=== PATIENT | male | born 1975 | race African-American/Black ===

== ENCOUNTER 2021-02-05 13:18 | Emergency (ER) | payer OTHER, SELFPAY ==
[2021-02-05 16:14] LABS: Absolute Lymphocytes (CBC) 1.7 K/uL (0.7-4.9); Hematocrit 43.6 % (39.6-49.0); Lymphocytes % 26.1 % (15.3-44.8); MPV 8.1 fL (7.6-11.3); RBC Red Blood Cell Count 4.93 M/uL (4.33-5.43)
[2021-02-05 16:17] LABS: Albumin 3.8 g/dL (3.4-5.0); Bilirubin Total 0.4 mg/dL (0.2-1.0); Potassium 4.7 mmol/L (3.5-5.1); Protein, Total 7.8 g/dL (6.4-8.2)
--- NOTE | 2021-02-05 17:10 | EDPHYS ---
Physician Documentation [facility] Name: Kai Vega Age: 45 yrs Sex: Male : 1975 Arrival Date: 02/05/2021 Time: 13:20 Bed 23 Private MD: ED Physician Zeke Pereira HPI: 02/05 15:18 This 45 yrs old Black Male presents to ER via Ambulatory with complaints of Fever, Sore jmm Throat. 15:18 The patient reports fever, that was measured at 103 degrees Fahrenheit. Onset: The jmm symptoms/episode began/occurred gradually. This is a 45 year old male with no chronic medical conditions that presents to the ED with complaints of sore throat, cough. Evaluated at [facility] with negative labs. Prescribed oral abx. States patient still has a fever with ongoing sore throat and has noted scrotal lesions. . Historical: - Allergies: 13:40 No Known Allergies; ll1 - PMHx: 13:40 None; ll1 - PSHx: 13:40 abscess to scrotum I \T\ D; ll1 - Immunization history:: Flu vaccine is not up to date. - Social history:: Smoking status: Patient reports the use of cigarette tobacco products, smokes one-half pack cigarettes per day. ROS: 15:18 Constitutional: Positive for fever. jmm 15:18 ENT: Positive for sore throat. 15:18 Skin: Positive for erythema. 15:18 All other systems are negative. Exam: 15:18 Constitutional: This is a well developed, well nourished patient who is awake, alert, jmm and in no acute distress. Head/Face: atraumatic. Eyes: EOMI, no conjunctival erythema appreciated Neck: Trachea midline, Supple Chest/axilla: Normal chest wall appearance and motion. Cardiovascular: Regular rate and rhythm. No edema appreciated 15:18 Abdomen/GI: Non distended, soft Back: Normal ROM Skin: General appearance color normal 15:18 MS/ Extremity: Moves all extremities, no obvious deformities appreciated, no edema noted to the lower extremities Neuro: Awake and alert, normal gait Psych: Behavior is normal, Mood is normal, Patient is cooperative and pleasant 15:18 ENT: Posterior pharynx: Uvula: erythema, erythema, that is moderate, exudate, that is moderate, peritonsillar mass, is not appreciated. 15:18 : scrotal lesions noted. Vital Signs: 13:41 BP 117 / 87; Pulse 85; Resp 17; Temp 98.2; Pulse Ox 96% on R/A; Weight 63.96 kg; Height ll1 5 ft. 6 in. (167.64 cm); Pain 6/10; 15:21 BP 133 / 96; Pulse 78; Resp 16; Pulse Ox 100% on R/A; vg1 16:00 BP 126 / 88; Pulse 69; Resp 20; Pulse Ox 100% on R/A; vg1 17:00 BP 126 / 98; Pulse 80; Resp 18; Pulse Ox 100% on R/A; vg1 13:41 Body Mass Index 22.76 (63.96 kg, 167.64 cm) ll1 MDM: 15:06 Patient medically screened. [facility] 17:03 Data reviewed: vital signs, nurses notes. Counseling: I had a detailed discussion with yasir the patient and/or guardian regarding: the historical points, exam findings, and any diagnostic results supporting the discharge/admit diagnosis, lab results, radiology results, the need for outpatient follow up, to return to the emergency department if symptoms worsen or persist or if there are any questions or concerns that arise at home. ED course: Patient is alert and non toxic in appearance in the ED. No signs of resp distress. Patient is advised to follow up with pcp and otherwise given strict return precautions. Patient understood and agrees with the plan of care. . 02/05 15:15 Order name: CBC with Diff [facility] 02/05 15:15 Order name: CMP; Complete Time: 16:22 [facility] 02/05 15:15 Order name: Procalcitonin; Complete Time: 16:38 [facility] 02/05 15:15 Order name: Lactate; Complete Time: 16:22 [facility] 02/05 15:15 Order name: Strep; Complete Time: 16:22 [facility] 02/05 15:15 Order name: [place] Screen Profile; Complete Time: 16:34 [facility] 02/05 15:15 Order name: Saline Lock; Complete Time: 15:55 [facility] 02/05 15:16 Order name: CBC with Automated Diff; Complete Time: 16:16 [facility] 02/05 16:18 Order name: Throat Culture [facility] 02/05 16:42 Order name: SARS-COV-2 RT PCR; Complete Time: 16:43 EDSC Administered Medications: 17:06 Drug: Decadron - Dexamethasone 10 mg Route: IVP; Site: right antecubital; vg1 17:27 Follow up: Response: No adverse reaction vg1 Disposition: 17:44 Co-signature as Attending Physician, Zeke Pereira MD I agree with the assessment and tw4 plan of care. Disposition: 02/05/21 17:10 Discharged to Home. Impression: Scrotal Folliculitis, Acute Pharyngitis. - Condition is Stable. - Discharge Instructions: Pharyngitis, Folliculitis. - Prescriptions for Doxycycline Hyclate 100 mg Oral Tablet - take 1 tablet by ORAL route every 12 hours; 20 tablet. - Medication Reconciliation Form, Thank You Letter, Antibiotic Education, Prescription Opioid Use form. - Follow up: Eugenio Long MD; When: 2 - 3 days; Reason: Recheck today's complaints, Continuance of care, Re-evaluation by your physician. Signatures: Dispatcher [employer] [facility] Hoang Vazquez PA PA jmm Wadley, Terrence, MD MD tw4 Helen Finnegan, RN RN vg1 Rizwana Lua RN RN ll1 Corrections: (The following items were deleted from the chart) 15:51 15:16 CORONAVIRUS+MR.LAB.BRZ ordered. [facility] EDSC 17:27 17:10 02/05/2021 17:10 Discharged to Home. Impression: Scrotal Folliculitis; Acute vg1 Pharyngitis. Condition is Stable. Forms are Medication Reconciliation Form, Thank You Letter, Antibiotic Education, Prescription Opioid Use. Follow up: Eugenio Long; When: 2 - 3 days; Reason: Recheck today's complaints, Continuance of care, Re-evaluation by your physician. yasir
--- NOTE | 2021-02-05 17:10 | ER ---
[facility]'s Notes [facility] Name: Kai Vega Age: 45 yrs Sex: Male : 1975 Arrival Date: 02/05/2021 Time: 13:20 Bed 23 Private MD: Diagnosis: Scrotal Folliculitis;Acute Pharyngitis Presentation: 02/05 13:41 Chief complaint: Patient states: 1. Fever, chills, sore throat, cough for 2 weeks. Went ll1 to [place] 4 days ago, flu/strep and covid negative at that time. on antibiotic (unknown name) for 4 days. States his fever was 101.5 this morning, took tylenol [employer]. 2. Noticed small abrasions, redness, pain to perineal area for 4 days. No drainage at this time. Coronavirus screen: Client denies travel out of the [place] in the last 14 days. chills, congestion, cough unrelated to allergies, diarrhea, fever, headache, nausea, runny nose, shaking with chills, shortness of breath, sore throat, Client presents with at least one sign or symptom that may indicate coronavirus-19. Standard/surgical mask placed on the client. Ebola Screen: Patient denies travel to an Ebola-affected area in the 21 days before illness onset. Initial Sepsis Screen: Does the patient meet any 2 criteria? No. Patient's initial sepsis screen is negative. Does the patient have a suspected source of infection? Yes: Productive cough/pneumonia. Risk Assessment: Do you want to hurt yourself or someone else? Patient reports no desire to harm self or others. Onset of symptoms was January 24, 2021. 13:41 Method Of Arrival: Ambulatory ll1 13:41 Acuity: PAYAL 3 ll1 Historical: - Allergies: 13:40 No Known Allergies; ll1 - PMHx: 13:40 None; ll1 - PSHx: 13:40 abscess to scrotum I \T\ D; ll1 - Immunization history:: Flu vaccine is not up to date. - Social history:: Smoking status: Patient reports the use of cigarette tobacco products, smokes one-half pack cigarettes per day. Screenin:22 Abuse screen: Denies threats or abuse. Nutritional screening: No deficits noted. vg1 Tuberculosis screening: No symptoms or risk factors identified. Fall Risk No fall in past 12 months (0 pts). No secondary diagnosis (0 pts). IV access (20 points). Ambulatory Aid- None/Bed Rest/Nurse Assist (0 pts). Gait- Normal/Bed Rest/Wheelchair (0 pts) Mental Status- Oriented to own ability (0 pts). Total [place] Fall Scale indicates No Risk (0-24 pts). Assessment: 15:20 General: Appears in no apparent distress. comfortable, Behavior is calm, cooperative. vg1 Pain: Complains of pain in throat Pain currently is 6 out of 10 on a pain scale. Neuro: Level of Consciousness is awake, alert, obeys commands, Oriented to person, place, time, situation. Cardiovascular: Patient's skin is warm and dry. Respiratory: Reports cough that is productive, Airway is patent Respiratory effort is even, unlabored, Breath sounds are clear bilaterally. Denies shortness of breath. GI: No signs and/or symptoms were reported involving the gastrointestinal system. : No signs and/or symptoms were reported regarding the genitourinary system. EENT: Throat is reddened. Derm: Skin is intact, is healthy with good turgor. Musculoskeletal: Circulation, motion, and sensation intact. 17:07 Reassessment: Patient appears in no apparent distress at this time. No changes from vg1 previously documented assessment. Patient and/or family updated on plan of care and expected duration. Pain level reassessed. Patient is alert, oriented x 3, equal unlabored respirations, skin warm/dry/pink. Vital Signs: 13:41 BP 117 / 87; Pulse 85; Resp 17; Temp 98.2; Pulse Ox 96% on R/A; Weight 63.96 kg; Height ll1 5 ft. 6 in. (167.64 cm); Pain 6/10; 15:21 BP 133 / 96; Pulse 78; Resp 16; Pulse Ox 100% on R/A; vg1 16:00 BP 126 / 88; Pulse 69; Resp 20; Pulse Ox 100% on R/A; vg1 17:00 BP 126 / 98; Pulse 80; Resp 18; Pulse Ox 100% on R/A; vg1 13:41 Body Mass Index 22.76 (63.96 kg, 167.64 cm) ll1 ED Course: 13:20 Patient arrived in ED. ds1 13:40 Arm band placed on. ll1 13:44 Triage completed. 1 14:59 [facility] 14:59 Zeke Pereira MD is Attending Physician. [facility] 15:20 Helen Finnegan, RN is Primary Nurse. vg1 15:22 Patient has correct armband on for positive identification. Bed in low position. Call 1 light in reach. Side rails up X 1. 15:55 Initial lab(s) drawn, by me, sent to lab. COVID swab sent to lab. Strep swab sent to 1 lab. Inserted saline lock: 20 gauge in right antecubital area, using aseptic technique. Blood collected. 17:10 Eugenio Long MD is Referral Physician. [facility] 17:27 No provider procedures requiring assistance completed. IV discontinued, intact, vg1 bleeding controlled, No redness/swelling at site. Pressure dressing applied. Administered Medications: 17:06 Drug: Decadron - Dexamethasone 10 mg Route: IVP; Site: right antecubital; 1 17:27 Follow up: Response: No adverse reaction vg1 Outcome: 17:10 Discharge ordered by . [facility] 17:27 Discharged to home ambulatory. vg1 17:27 Condition: stable 17:27 Discharge instructions given to patient, Instructed on discharge instructions, the need for admit, medication usage, Demonstrated understanding of instructions, follow-up care, medications, Prescriptions given X 1. 17:27 Patient left the ED. 1 Signatures: Hoang Vazquez PA PA [facility] Trang Li ds1 Helen Finnegan RN RN 1 Rizwana Lua RN RN [facility] Corrections: (The following items were deleted from the chart) 13:45 13:41 Chief complaint: Patient states: Fever, chills, sore throat, cough for 2 weeks. ll1 Went to [place] 4 days ago, flu/strep and covid negative at that time. on antibiotic (unknown name) for 4 days. States his fever was 101.5 this morning, took tylenol [employer]. 1
[2021-02-05] MEDS ORDERED: dexAMETHasone 10 MG/ML VIAL ONE (17:17)
[2021-02-05 17:39] VITALS: TEMP 98.2
[2021-02-05 17:40] VITALS: O2SAT 100
[2021-02-05 17:43] VITALS: BP 126/98
== END 2021-02-05 17:27 | disposition home or self-care (01) ==
LOC: ER 13:18
DX: L73.8 Other specified follicular disorders (principal); J02.9 Acute pharyngitis, unspecified; F17.210 Nicotine dependence, cigarettes, uncomplicated; Z20.822 Contact with and (suspected) exposure to COVID-19
CPT/HCPCS: 36415; 80053; 83605; 84145; 85025; 86308; 87070; 87081; 96374; 99284; J1100; U0003

== ENCOUNTER 2024-11-14 12:39 | Emergency (ER) | payer OTHER, SELFPAY ==
[2024-11-14] MEDS ORDERED: LABETALOL 20 MG/4ML SYRINGE IV ONE (13:33)
[2024-11-14 13:42] LABS: Absolute Basophils 0.1 K/uL (0-0.5); Absolute Eosinophils 0.1 K/uL (0-0.5); Absolute Lymphocytes (CBC) 2.1 K/uL (0.7-4.9); Absolute Monocytes 0.6 K/uL (0.1-1.3); Absolute Neutrophil 3.3 K/uL (1.8-8.0); Hematocrit 48.6 % (39.6-49.0); Hemoglobin 15.7 g/dL (13.6-17.9); Lymphocytes % 33.8 % (15.3-44.8); MCH 29.3 pg (27.0-35.0); MCHC 32.3 g/dL (32.0-36.0); MCV 90.9 fL (80-100); MPV 8.1 fL (7.6-11.3); Monocytes % 9.3 % (3.3-12.3); Neutrophils % 53.9 % (41.7-73.7); Platelets 275 thou/uL (152-406); RBC Red Blood Cell Count 5.35 M/uL (4.33-5.43)
[2024-11-14 13:52] LABS: PT Prothrombin Time 10.1 SECONDS (9.4-12.5); Protime INR 0.9
[2024-11-14 14:04] LABS: Albumin 3.9 g/dL (3.4-5.0); Albumin/Globulin Ratio 1.1 (1.1-1.8); Anion Gap 7.1 mEq/L (5.0-15.0); Bilirubin Direct 0.2 mg/dL (0-0.2); Bilirubin Indirect, Calculated 0.4 mg/dL (0.2-0.8); Bilirubin Total 0.6 mg/dL (0.2-1.0); Globulin 3.4 g/dL (2.3-3.5); Magnesium 2.2 mg/dL (1.6-2.4); Potassium 4.1 mEq/L (3.5-5.1); Protein, Total 7.3 g/dL (6.4-8.2); Troponin High Sensitivity 9.8 pg/mL (<58.9)
--- NOTE | 2024-11-14 14:07 | RAD REPORT ---
EXAMINATION: ONE VIEW CHEST XR CLINICAL INDICATION: Male, 49 years old.,HTN urgency TECHNIQUE: Frontal chest projection is submitted. Examination is limited by patient positioning and t echnique. COMPARISON: No prior exam. FINDINGS: The lungs are well inflated and clear. No pneumothorax or sizable effusion. The heart is normal in s ize. Mediastinal contours are unremarkable. IMPRESSION: No acute intrathoracic abnormalities.
--- NOTE | 2024-11-14 14:14 | RAD REPORT ---
EXAM: CT Head Brain Wo Cont HISTORY: HTN Urgency;Headache COMPARISON: None TECHNIQUE: Multiple contiguous axial images were obtained for a CT of the brain without contrast. Sag ittal and coronal reformats were performed. One or more of the following dose reduction techniques were used: Automated exposure control, adjus tment of the mA and kV according to patient size, and iterative reconstruction. Unless otherwise specified, incidental findings do not require dedicated imaging follow-up. FINDINGS: No evidence of hydrocephalus, intracranial hemorrhage, or extra-axial fluid collection. The brain is normal in morphology. The calvarium is intact. The visualized paranasal sinuses and mastoid air cells are essentially clear . IMPRESSION: No evidence of acute intracranial abnormality.
--- NOTE | 2024-11-14 14:22 | EDPHYS ---
Physician Documentation [facility] Name: Kai Vega Age: 49 yrs Sex: Male : 1975 Arrival Date: 11/14/2024 Time: 12:39 Bed 6 Private MD: ED Physician Manohar Alejo HPI: 11/14 13:21 This 49 yrs old Black Male presents to ER via Ambulatory with complaints of High Blood sp3 Pressure. 13:21 49-year-old male with no known past medical history though he does not regularly see a sp3 primary care physician presents with high blood pressure and headache. Patient states he has been starting to check his blood pressure over the last 2 to 3 weeks secondary to new headaches that have occurred. He denies any direct trauma, neurological symptoms associated with the headaches or any pattern recognition of the headache. He denies any vision changes, hearing changes, speech abnormality, memory loss, neck pain, chest pain, shortness of breath, abdominal pain, back pain, change in urine output, rash, bleeding, or any other signs or symptoms on ROS at this time. Patient is on no medications and denies any recreational drug use, tobacco or alcohol.. Historical: - Allergies: 13:09 No Known Allergies; cm10 - Home Meds: 13:09 None [Active]; cm10 - PMHx: 13:09 None; cm10 - PSHx: 13:09 None; cm10 - Immunization history:: Adult Immunizations up to date. - Infectious Disease History:: Denies. - Social history:: Smoking status: Patient reports the use of cigarette tobacco products, smokes one pack cigarettes per day. ROS: 13:22 Constitutional: Negative for fever, chills, and weight loss, Eyes: Negative for injury, sp3 pain, redness, and discharge, ENT: Negative for injury, pain, and discharge, Neck: Negative for injury, pain, and swelling, Cardiovascular: Negative for chest pain, palpitations, and edema, Respiratory: Negative for shortness of breath, cough, wheezing, and pleuritic chest pain, Abdomen/GI: Negative for abdominal pain, nausea, vomiting, diarrhea, and constipation, Back: Negative for injury and pain, MS/Extremity: Negative for injury and deformity, Skin: Negative for injury, rash, and discoloration, Psych: Negative for depression, anxiety, suicide ideation, homicidal ideation, and hallucinations, Allergy/Immunology: Negative for hives, rash, and allergies, Endocrine: Negative for neck swelling, polydipsia, polyuria, polyphagia, and marked weight changes, Hematologic/Lymphatic: Negative for swollen nodes, abnormal bleeding, and unusual bruising, 13:22 All other systems are negative, Exam: 13:22 Constitutional: This is a well developed, well nourished patient who is awake, alert, sp3 and in no acute distress. Head/Face: Normocephalic, atraumatic. Eyes: Pupils equal round and reactive to light, extra-ocular motions intact. Lids and lashes normal. Conjunctiva and sclera are non-icteric and not injected. Cornea within normal limits. Periorbital areas with no swelling, redness, or edema. Neck: Trachea midline, no thyromegaly or masses palpated, and no cervical lymphadenopathy. Supple, full range of motion without nuchal rigidity, or vertebral point tenderness. No Meningismus. Chest/axilla: Normal chest wall appearance and motion. Nontender with no deformity. No lesions are appreciated. Cardiovascular: Regular rate and rhythm with a normal S1 and S2. No gallops, murmurs, or rubs. Normal PMI, no JVD. No pulse deficits. Respiratory: Lungs have equal breath sounds bilaterally, clear to auscultation and percussion. No rales, rhonchi or wheezes noted. No increased work of breathing, no retractions or nasal flaring. Abdomen/GI: Soft, non-tender, with normal bowel sounds. No distension or tympany. No guarding or rebound. No evidence of tenderness throughout. Back: No spinal tenderness. No costovertebral tenderness. Full range of motion. Skin: Warm, dry with normal turgor. Normal color with no rashes, no lesions, and no evidence of cellulitis. MS/ Extremity: Pulses equal, no cyanosis. Neurovascular intact. Full, normal range of motion. Neuro: Awake and alert, GCS 15, oriented to person, place, time, and situation. Cranial nerves II-XII grossly intact. Motor strength 5/5 in all extremities. Sensory grossly intact. Cerebellar exam normal. Normal gait. Psych: Awake, alert, with orientation to person, place and time. Behavior, mood, and affect are within normal limits. 13:33 ECG was reviewed by the Attending Physician. EKG demonstrates normal sinus rhythm at 76 sp3 bpm with normal intervals, normal QRS, normal axis, nonspecific diffuse ST/T changes without evidence of acute ischemia. Vital Signs: 13:10 BP 177 / 122; Pulse 79; Resp 16; Temp 98.5; Pulse Ox 98% on R/A; Weight 70.31 kg; cm10 Height 5 ft. 6 in. ; Pain 6/10; 13:34 BP 150 / 110; Pulse 81; Resp 16 S; Pulse Ox 99% on R/A; aa5 14:13 BP 152 / 119; Pulse 67; Resp 18 S; Pulse Ox 97% on R/A; aa5 14:40 BP 142 / 101; Pulse 72; Resp 16 S; Pulse Ox 99% on R/A; aa5 13:10 Body Mass Index 25.02 (70.31 kg, 167.64 cm) cm10 13:10 Pain Scale: Adult cm10 14:40 MD aware of BP aa5 MDM: 13:08 Medical Screening Exam initiated sp3 13:22 Data reviewed: vital signs, nurses notes, lab test result(s), EKG, radiologic studies. sp3 ED course: 49-year-old male with hypertensive urgency and headache. Differential diagnosis includes essential hypertension, electrolyte abnormality, renal artery pathology, ACS, among others. Workup will include standard workup of CT scan of the head, EKG, general labs including creatinine and troponin, chest x-ray and general supportive care. Labetalol 10 mg IV x 1 will be given for symptomatic control. Neurological exam is normal. Disposition pending workup and patient course.. 14:21 ED course: Full workup negative and blood pressure is now lower. Will place patient on sp3 hydrochlorothiazide and discharged home. Patient is already made a new appointment with a new PCP and will follow-up. Headache is improved.. 11/14 13:20 Order name: Basic Metabolic Panel; Complete Time: 14:09 sp3 11/14 13:20 Order name: CBC with Diff; Complete Time: 14: sp3 11/14 13:20 Order name: LFT's; Complete Time: 14:09 sp3 11/14 13:20 Order name: Magnesium; Complete Time: 14:09 sp3 11/14 13:20 Order name: NT PRO-BNP; Complete Time: 14:09 sp3 11/14 13:20 Order name: PT-INR; Complete Time: 14:09 sp3 11/14 13:20 Order name: Troponin HS; Complete Time: 14: sp3 11/14 13:20 Order name: XRAY Chest (1 view); Complete Time: 14: sp3 11/14 13:20 Order name: CT Head Brain wo Cont; Complete Time: 14:15 sp3 11/14 13:20 Order name: Cardiac monitoring; Complete Time: 13:34 sp3 11/14 13:20 Order name: EKG - Nurse/Tech; Complete Time: 13:29 sp3 11/14 13:20 Order name: IV Saline Lock; Complete Time: 13:29 sp3 11/14 13:20 Order name: Labs collected and sent; Complete Time: 13: sp3 11/14 13:20 Order name: O2 Sat Monitoring; Complete Time: 13:29 sp3 Administered Medications: 13:47 Drug: Labetalol IV 10 mg IV at calculated rate once Route: IV; Rate: calculated rate; aa5 Site: right antecubital; Disposition Summary: 11/14/24 14:22 Discharge Ordered Notes: Location: Home sp3 Condition: Stable sp3 Diagnosis - Hypertensive urgency, essential hypertension, headache sp3 Followup: sp3 - With: Private Physician - When: Upon discharge from the Emergency Department - Reason: Continuance of care Discharge Instructions: - Discharge Summary Sheet sp3 - Hypertension, Adult sp3 Forms: - Medication Reconciliation Form sp3 - Antibiotic Education sp3 - Prescription Opioid Use sp3 - Patient Portal Instructions sp3 - Leadership Thank You Letter sp3 Prescriptions: - Hydrochlorothiazide 25 mg Oral Tablet - take 1 tablet ORAL route once daily .; 30 tablet; Refills: 0, Product Selection sp3 Permitted Signatures: Dispatcher [employer] EDMS Iona Doe RN RN aa5 Manohar Alejo MD MD sp3 Oksana Hutchison RN RN cm10 Corrections: (The following items were deleted from the chart) 13:21 13:21 Chest Single View+RAD.RAD.BRZ ordered. EDMS EDMS 13:21 13:21 Head Brain Wo Cont+CT.RAD.BRZ ordered. EDMS EDMS
--- NOTE | 2024-11-14 14:22 | ER ---
Nurse's Notes [facility] Name: Kai Vega Age: 49 yrs Sex: Male : 1975 Arrival Date: 11/14/2024 Time: 12:39 Bed 6 Private MD: Diagnosis: Hypertensive urgency, essential hypertension, headache Presentation: 11/14 13:08 Chief complaint: Patient states: checked BP this morning and his pressure was reading cm10 166/116. pt reports not having a history of HTN. Pt reports a headache and had an episode of vomiting with blood in the vomit. Coronavirus screen: Client denies travel out of the [place] in the last 14 days. Ebola Screen: Patient denies travel to an Ebola-affected area in the 21 days before illness onset. No symptoms or risks identified at this time. Initial Sepsis Screen: Does the patient meet any 2 criteria? No. Patient's initial sepsis screen is negative. Does the patient have a suspected source of infection? No. Patient's initial sepsis screen is negative. Risk Assessment: Do you want to hurt yourself or someone else? Patient reports no desire to harm self or others. Onset of symptoms was November 14, 2024. 13:08 Method Of Arrival: Ambulatory cm10 13:08 Acuity: PAYAL 3 cm10 Triage Assessment: 13:09 General: Appears in no apparent distress. comfortable, Behavior is calm, cooperative. cm10 Neuro: No deficits noted. Level of Consciousness is awake, alert, obeys commands, Oriented to person, place, time, situation, Appropriate for age Reports headache. Respiratory: No deficits noted. Airway is patent Respiratory effort is even, unlabored, Respiratory pattern is regular, symmetrical. Historical: - Allergies: 13:09 No Known Allergies; cm10 - Home Meds: 13:09 None [Active]; cm10 - PMHx: 13:09 None; cm10 - PSHx: 13:09 None; cm10 - Immunization history:: Adult Immunizations up to date. - Infectious Disease History:: Denies. - Social history:: Smoking status: Patient reports the use of cigarette tobacco products, smokes one pack cigarettes per day. Screenin:48 [facility] ED Fall Risk Assessment (Adult) History of falling in the last 3 months, aa5 including since admission No falls in past 3 months (0 pts) Confusion or Disorientation No (0 pts) Intoxicated or Sedated No (0 pts) Impaired Gait No (0 pts) Mobility Assist Device Used No (0 pt) Altered Elimination No (0 pt) Score/Fall Risk Level 0 - 2 = Low Risk Oriented to surroundings, Maintained a safe environment, Educated pt \T\ family on fall prevention, incl call for assistance when getting out of bed. Abuse screen: Denies threats or abuse. Nutritional screening: No deficits noted. Tuberculosis screening: No symptoms or risk factors identified. Assessment: 13:20 General: Appears comfortable, Behavior is calm, cooperative. Pain: Complains of pain in aa5 head Pain currently is 6 out of 10 on a pain scale. Quality of pain is described as aching, Pain began 2-3 weeks ago. Neuro: Level of Consciousness is awake, alert, obeys commands, Oriented to person, place, time, situation, Reports headache. Cardiovascular: Heart tones S1 S2 present Rhythm is regular. Respiratory: Airway is patent Respiratory effort is even, unlabored, Respiratory pattern is regular, symmetrical. GI: Abdomen is round non-distended, Bowel sounds present X 4 quads. Abd is soft and non tender X 4 quads. Reports vomiting blood today x 1. : No signs and/or symptoms were reported regarding the genitourinary system. EENT: No signs and/or symptoms were reported regarding the EENT system. Derm: Skin is dry, Skin is normal, Skin temperature is warm. Musculoskeletal: Range of motion: intact in all extremities. 13:45 Reassessment: Pt back from CT scan . aa5 14:55 Neuro: Level of Consciousness is awake, alert, obeys commands, Oriented to person, aa5 place, time, situation. Respiratory: Airway is patent Respiratory effort is even, unlabored, Respiratory pattern is regular, symmetrical. Derm: Skin is dry, Skin is normal, Skin temperature is warm. Vital Signs: 13:10 BP 177 / 122; Pulse 79; Resp 16; Temp 98.5; Pulse Ox 98% on R/A; Weight 70.31 kg; cm10 Height 5 ft. 6 in. ; Pain 6/10; 13:34 BP 150 / 110; Pulse 81; Resp 16 S; Pulse Ox 99% on R/A; aa5 14:13 BP 152 / 119; Pulse 67; Resp 18 S; Pulse Ox 97% on R/A; aa5 14:40 BP 142 / 101; Pulse 72; Resp 16 S; Pulse Ox 99% on R/A; aa5 13:10 Body Mass Index 25.02 (70.31 kg, 167.64 cm) cm10 13:10 Pain Scale: Adult cm10 14:40 MD aware of BP aa5 ED Course: 12:48 Patient arrived in ED. ra3 12:51 Manohar Alejo MD is Attending Physician. sp3 13:09 Triage completed. cm10 13:11 Arm band placed on right wrist. Patient placed in an exam room, on a stretcher. cm10 13:20 Iona Doe, RN is Primary Nurse. aa5 13:20 Patient has correct armband on for positive identification. Placed in gown. Bed in low aa5 position. Call light in reach. Side rails up X2. Adult w/ patient. Client placed on continuous cardiac and pulse oximetry monitoring. NIBP monitoring applied. telemetry monitor on. Pulse ox on. NIBP on. 13:20 Initial lab(s) drawn, by me, sent to lab. Inserted saline lock: 20 gauge in right aa5 antecubital area, using aseptic technique. Blood collected. Flushed with 10 mL NS. 13:34 EKG done, by ED staff, reviewed by Manohar Alejo MD. em1 13:40 CT Head Brain wo Cont In Process Unspecified. EDMS 13:44 XRAY Chest (1 view) In Process Unspecified. EDMS 13:48 No provider procedures requiring assistance completed. aa5 14:50 IV discontinued, intact, bleeding controlled, No redness/swelling at site. Pressure aa5 dressing applied. Administered Medications: 13:47 Drug: Labetalol IV 10 mg IV at calculated rate once Route: IV; Rate: calculated rate; aa5 Site: right antecubital; Medication: 13:48 VIS not applicable for this client. aa5 Outcome: 14:22 Discharge ordered by . sp3 14:55 Discharged to home ambulatory, with significant other, aa5 14:55 Condition: stable 14:55 Discharge instructions given to patient, Instructed on discharge instructions, follow up and referral plans. medication usage, Demonstrated understanding of instructions, follow-up care, medications, Prescriptions given X 1, 14:57 Patient left the ED. aa5 Signatures: Dispatcher [employer] EDMS Kervin Hutchison em1 Iona Doe RN RN aa5 Manohar Alejo MD MD sp3 Oksana Hutchison RN RN cm10 Naz Nicholas ra3 Corrections: (The following items were deleted from the chart) 14:14 14:13 BP 167 / 92; Pulse 67bpm; Resp 18bpm; Spontaneous; Pulse Ox 97% RA; aa5 aa5
[2024-11-14 15:16] VITALS: TEMP 98.5
[2024-11-14 15:24] VITALS: BP 142/101; O2SAT 99
--- NOTE | 2024-11-16 13:08 | EKG ---
Test Date: 2024-11-14 Test Time: 13:30:47 [employer] Technician: CRISTINA MEASUREMENT RESULTS: Intervals: Rate: 76 AR: 152 QRSD: 88 QT: 356 QTc: 400 [place]: P: 56 AR: 152 QRS: 51 T: 10 INTERPRETIVE STATEMENTS: Normal sinus rhythm Cannot rule out Anterior infarct, age undetermined Abnormal ECG No previous ECG available for comparison Electronically Signed On 11-16-24 13:04:45 [employer] S[employer] REPRESENTATIVE by Prakash Campos
== END 2024-11-14 14:57 | disposition home or self-care (01) ==
LOC: ER 12:39
DX: I16.0 Hypertensive urgency (principal); R51.9 Headache, unspecified; F17.210 Nicotine dependence, cigarettes, uncomplicated
CPT/HCPCS: 36415; 70450; 71045; 80048; 80076; 83735; 83880; 84484; 85025; 85610; 93005; 96374; 99285